=== PATIENT | female | born 1930 | race Caucasian/White ===

== ENCOUNTER 2018-04-03 14:33 | Emergency (ER) | payer OTHER ==
[2018-04-03 14:45] VITALS: BP 125/71; PULSE 66; RESP 18; TEMP 97.8; O2SAT 94
[2018-04-03 15:23] LABS: BASOPHILS % (AUTO) 1 % (0-3); EOSINOPHILS % (AUTO) 0 % (0-9); HEMATOCRIT 38 % (35-47); LYMPHOCYTES % (AUTO) 16.6 % (10-50); MEAN CORPUSCULAR HEMOGLOBIN 29.5 pg (27.0-32.0); MEAN CORPUSCULAR HGB CONC 31.1 gm/dl (32.0-36.0); MEAN CORPUSCULAR VOLUME 95 fL (81-99); NEUTROPHILS % (AUTO) 76.4 % (37-80)
[2018-04-03 15:39] LABS: BLOOD UREA NITROGEN 18 mg/dl (7-18); CALCIUM 8.9 mg/dl (8.5-10.1); CARBON DIOXIDE 29.1 mEq/L (21-32); CHLORIDE 105 mMol/L (98-107); CREATININE 1.03 mg/dl (0.60-1.00); GLUCOSE 97 mg/dl (74-106); POTASSIUM 4.1 mMol/L (3.5-5.1); SODIUM 141 mMol/L (136-145); TROP I < 0.017 ng/ml (0.000-0.056)
[2018-04-03 15:58] LABS: INR 0.95 (0.86-1.12)
[2018-04-03 16:24] LABS: APPEARANCE,URINE Clear; BILIRUBIN,URINE NEGATIVE (NEGATIVE); COLOR,URINE Yellow; GLUCOSE, URINE (UA) NEGATIVE (NEGATIVE); KETONES,URINE NEGATIVE (NEGATIVE); LEUKOCYTE ESTERASE ,URINE NEGATIVE (NEGATIVE); NITRATE,URINE NEGATIVE (NEGATIVE); OCCULT BLOOD,URINE NEGATIVE (NEG-TRACE); UROBILINOGEN,URINE 0.2 (0.2-1.0 EU)
[2018-04-03 16:35] LABS: BACTERIA 1+ (< 1+); CRYSTALS NEGATIVE (0-3 AVE/HPF); EPITHELIAL CELLS 0-1 (SQUAMOUS); RBC,URINE 0-1 (0-3AV/HPF); WBC,URINE 0-1 (0-5AV/HPF)
== END 2018-04-03 19:20 | disposition home or self-care (01) | DRG 884 ==
LOC: ED 14:33
DX: F03.90 Unspecified dementia, unspecified severity, without behavioral disturbance, psychotic disturbance, mood disturbance, and anxiety (principal)
CPT/HCPCS: 36415; 70450; 80048; 81001; 84484; 85025; 85610; 93005; 99283